=== PATIENT | female | born 1995 | race Caucasian/White ===

== ENCOUNTER 2022-11-24 12:12 | Emergency (ER) | payer OTHER ==
[2022-11-24] MEDS ORDERED: LIDOCAINE 2% W/EPI 1:200,000 MPF 20 ML VIAL IM ONE (12:59)
[2022-11-24] MEDS ORDERED: LIDOCAINE 1% MPF 5 ML VIAL ONE (12:59)
[2022-11-24 13:59] LABS: Specific Gravity 1.009 (1.005-1.030); Urine Bacteria None Seen /HPF (<20); Urine Bilirubin NEGATIVE (Negative); Urine Blood Negative (Negative); Urine Clarity Clear (Clear); Urine Color Light-Yellow (Yellow); Urine Glucose NEGATIVE (Negative); Urine Mucus Slight /HPF (None Seen); Urine Protein NEGATIVE (Negative); Urine RBC <5 /HPF (None Seen); Urine Urobilinogen Normal (Normal); Urine pH 6.5 (5.0-7.0)
--- NOTE | 2022-11-24 14:15 | RAD REPORT ---
EXAM DESCRIPTION: US - Pelvis Complete - 11/24/2022 1:26 pm CLINICAL HISTORY: vaginal bulge;Abd pain Pelvic pain. COMPARISON: No comparisons FINDINGS: Cystic structure is present in the labia at the area of interest measuring 2.3 x 2.2 cm. N o internal soft tissue component. No adnexal masses or pelvic free fluid. Single live intrauterine gestational with hardware 160 beats per minute noted. Further evaluation of the fetus was not requested. IMPRESSION: Nonspecific 2.3 cm labial cyst is noted.
--- NOTE | 2022-11-24 15:09 | EDPHYS ---
Physician Documentation [facility] Name: Denia Solares Age: 27 yrs Sex: Female : 1995 Arrival Date: 11/24/2022 Time: 12:12 Bed 8 Private MD: ED Physician Micah Grace HPI: 11/24 12:21 This 27 yrs old Female presents to ER via Unassigned with complaints of 15 wks sb4 , vaginal bulge. 17:46 Patient states that she has felt like there is something protruding out of her vagina sb4 that has worsened over the past couple of days. She is not sure what it is. She states her took a photo of it but deleted it. She has no other symptoms, no abdominal pain or vaginal bleeding. She is 15 weeks in which she has received adequate care. Historical: - Allergies: 12:21 No Known Allergies; ll1 - PMHx: 12:21 None; ll1 - PSHx: 12:21 section; ll1 - Immunization history:: Adult Immunizations up to date. - Social history:: Smoking status: Patient denies any tobacco usage or history of. ROS: 17:46 Constitutional: Negative for fever, chills, and weight loss, sb4 17:46 : Positive for Vaginal bulge, 17:46 All other systems are negative, Exam: 17:46 Constitutional: This is a well developed, well nourished patient who is awake, alert, sb4 and in no acute distress. Head/Face: Normocephalic, atraumatic. Eyes: Extra-ocular motions intact. Periorbital areas with no swelling, redness, or edema. ENT: Mucous membranes moist. Cardiovascular: Regular rate and rhythm with a normal S1 and S2. Respiratory: Lungs have equal breath sounds bilaterally, clear to auscultation and percussion. No rales, rhonchi or wheezes noted. No increased work of breathing, no retractions or nasal flaring. Abdomen/GI: Soft, non-tender, no distension. Skin: Warm, dry with normal turgor. Normal color with no rashes, no lesions, and no evidence of cellulitis. MS/ Extremity: Pulses equal, no cyanosis. Neurovascular intact. Full, normal range of motion. Neuro: Awake and alert, GCS 15, oriented to person, place, time, and situation. Motor strength 5/5 in all extremities. Sensory grossly intact. 17:46 : CVA tenderness, is absent, Pelvic Exam: External exam: 2.5 circumferential mass noted around the urethral meatus, painful to palpation, not fixed, Speculum exam: normal findings, no bleeding is noted, no cervicitis, the nurse was present for the exam, Bladder: is normal, Vital Signs: 12:22 BP 114 / 68; Pulse 77; Resp 16; Temp 98.3; Pulse Ox 100% ; Weight 103.87 kg; Height 5 ll1 ft. 5 in. ; Pain 1/10; 12:37 BP 101 / 59; Pulse 81; Resp 17; Pulse Ox 100% on R/A; Pain 0/10; tm6 15:10 BP 101 / 58; Pulse 72; Resp 18; Pulse Ox 100% on R/A; ld1 12:22 Body Mass Index 38.11 (103.87 kg, 165.1 cm) ll1 12:22 Pain Scale: Adult ll1 12:37 Pain Scale: Adult tm6 MDM: 12:15 Patient medically screened. sb4 17:46 Differential diagnosis: Uterine prolapse, bladder prolapse, urethral prolapse, sb4 threatened , UTI, Bartholin cyst, missed , and inevitable . Data reviewed: vital signs, nurses notes, radiologic studies, I have discussed the patient's presentation/case with the attending Emergency Department Physician; and as a result, I will discharge patient. Historians other than the Patient: Spouse/Significant Other: Spouse. Counseling: I had a detailed discussion with the patient and/or guardian regarding the historical points, exam findings, and any diagnostic results supporting the discharge/admit diagnosis, radiology results, the need for outpatient follow up, an OB/Gyne specialist, Patient is from [place] she is here just visiting. She made an appointment with her BICYCLE SERVICE TECHNICIAN for Tuesday to further evaluate the possible urethral prolapse. Disc with her ultrasound and report were given for her to take, to return to the emergency department if symptoms worsen or persist or if there are any questions or concerns that arise at home. 11/24 13:11 Order name: UAM; Complete Time: 14:00 sb4 11/24 13:24 Order name: Pelvis Complete; Complete Time: 14:23 EDMS 11/24 13:27 Order name: TRANSVAG OB CERVIX ASSESSMENT EDMS 11/24 12:41 Order name: Pelvic Exam Setup; Complete Time: 12:41 sb4 Administered Medications: 12:55 Not Given (Physician Discretion): lidocaine(1 %) 20 ml 20 ml Infiltration once; to ld1 bedside Disposition: 16:44 I was immediately available on-site in the Emergency Department for consultation in the ms3 care of the patient. Disposition Summary: 11/24/22 15:09 Discharge Ordered Notes: Location: Home sb4 Problem: new sb4 Symptoms: are unchanged sb4 Condition: Stable sb4 Diagnosis - Urethral Prolapse, suspected sb4 Followup: sb4 - With: Private Physician - When: 2 - 3 days - Reason: Recheck today's complaints, Re-evaluation by your physician Discharge Instructions: - Discharge Summary Sheet sb4 - How to Take a Sitz Bath sb4 Forms: - Medication Reconciliation Form sb4 - Thank You Letter sb4 - Antibiotic Education sb4 - Prescription Opioid Use sb4 - Patient Portal Instructions sb4 - Leadership Thank You Letter sb4 Signatures: Dispatcher [employer] EDMS Manish Elias, RN RN ll1 Micah Grace DO DO ms3 Indu Lanier PA-C PA-C sb4 Petra Grace RN ld1 Corrections: (The following items were deleted from the chart) 13:24 12:56 Transvaginal Ob+US.RAD.BRZ ordered. EDKS EDMS 13:27 12:21 This 27 yrs old Female presents to ER via Unassigned with complaints of 15 wks sb4 , Abdominal Cramping. sb4
--- NOTE | 2022-11-24 15:09 | ER ---
Nurse's Notes [facility] Name: Denia Solares Age: 27 yrs Sex: Female : 1995 Arrival Date: 11/24/2022 Time: 12:12 Bed 8 Private MD: Diagnosis: Urethral Prolapse, suspected Presentation: 11/24 12:22 Chief complaint: Patient states: Reports a bulge to vaginal area for 2 days that's been ll1 getting bigger. Denies pain. 15 weeks with slight abdominal cramping for 1 day. G5, P1. Coronavirus screen: Vaccine status: Patient reports receiving the 2nd dose of the covid vaccine. Client denies travel out of the [place] in the last 14 days. At this time, the client does not indicate any symptoms associated with coronavirus-19. Ebola Screen: Patient denies travel to an Ebola-affected area in the 21 days before illness onset. Initial Sepsis Screen: Does the patient meet any 2 criteria? No. Patient's initial sepsis screen is negative. Does the patient have a suspected source of infection? No. Patient's initial sepsis screen is negative. Risk Assessment: Do you want to hurt yourself or someone else? Patient reports no desire to harm self or others. Onset of symptoms was November 23, 2022. 12:22 Method Of Arrival: Ambulatory ll1 12:22 Acuity: TAYLOR 3 ll1 Historical: - Allergies: 12:21 No Known Allergies; ll1 - PMHx: 12:21 None; ll1 - PSHx: 12:21 section; ll1 - Immunization history:: Adult Immunizations up to date. - Social history:: Smoking status: Patient denies any tobacco usage or history of. Screenin:37 [facility] ED Fall Risk Assessment (Adult) History of falling in the last 3 months, tm6 including since admission No falls in past 3 months (0 pts). Abuse screen: Denies threats or abuse. Denies injuries from another. Nutritional screening: No deficits noted. Tuberculosis screening: No symptoms or risk factors identified. Assessment: 12:35 General: Appears in no apparent distress. comfortable, Behavior is calm, cooperative. tm6 Pain: Denies pain. Neuro: Level of Consciousness is awake, alert, obeys commands, Oriented to person, place, time, situation, Appropriate for age. Cardiovascular:. Respiratory: Airway is patent Respiratory effort is even, unlabored, Respiratory pattern is regular, symmetrical. GI: No signs and/or symptoms were reported involving the gastrointestinal system. Bowel sounds present X 4 quads. Abd is soft and non tender. : at vaginal opening Reports mass at vaginal opening. EENT: No signs and/or symptoms were reported regarding the EENT system. Derm: No signs and/or symptoms reported regarding the dermatologic system. Musculoskeletal: No signs and/or symptoms reported regarding the musculoskeletal system. 14:26 Reassessment: Patient appears in no apparent distress at this time. No changes from ld1 previously documented assessment. Patient and/or family updated on plan of care and expected duration. Pain level reassessed. Patient is alert, oriented x 3, equal unlabored respirations, skin warm/dry/pink. Vital Signs: 12:22 BP 114 / 68; Pulse 77; Resp 16; Temp 98.3; Pulse Ox 100% ; Weight 103.87 kg; Height 5 ll1 ft. 5 in. ; Pain 1/10; 12:37 BP 101 / 59; Pulse 81; Resp 17; Pulse Ox 100% on R/A; Pain 0/10; tm6 15:10 BP 101 / 58; Pulse 72; Resp 18; Pulse Ox 100% on R/A; ld1 12:22 Body Mass Index 38.11 (103.87 kg, 165.1 cm) ll1 12:22 Pain Scale: Adult ll1 12:37 Pain Scale: Adult tm6 ED Course: 12:14 Patient arrived in ED. mr 12:15 Indu Lanier PA-C is PHCP. sb4 12:15 Micah Grace DO is Attending Physician. sb4 12:17 Luiza Nieves, SADAF is Primary Nurse. me1 12:21 Arm band placed on Patient placed in an exam room, on a stretcher. ll1 12:24 Triage completed. ll1 12:37 Patient has correct armband on for positive identification. Placed in gown. Bed in low tm6 position. Call light in reach. Side rails up X2. Provided Education on: . 12:37 Assist provider with pelvic exam: Set up pelvic tray. Performed by Indu Lanier PA-C. tm6 13:27 TRANSVAG OB CERVIX ASSESSMENT In Process Unspecified. EDMS 13:28 Pelvis Complete In Process Unspecified. EDNH 14:26 Petra Grace, RN is Primary Nurse. ld1 15:22 Patient did not have IV access during this emergency room visit. ld1 Administered Medications: 12:55 Not Given (Physician Discretion): lidocaine(1 %) 20 ml 20 ml Infiltration once; to ld1 bedside Medication: 15:12 VIS not applicable for this client. ld1 Outcome: 15:09 Discharge ordered by . sb4 15:22 Discharged to home ambulatory, with family, ld1 15:22 Condition: stable 15:22 Discharge instructions given to patient, family, Instructed on discharge instructions, follow up and referral plans. Demonstrated understanding of instructions, follow-up care, 15:22 Patient left the ED. ld1 Signatures: Dispatcher [employer] EDNH KiranSavannah, Reg Reg mr CurtManish, RN RN ll1 Petra Grace, RN RN ld1 Indu Lanier, PA-C PA-C sb4 Luiza Nieves RN RN me1 Saturnino Webster RN RN tm6
[2022-11-24 16:01] VITALS: TEMP 98.3; O2SAT 100
[2022-11-24 16:04] VITALS: BP 101/58
--- NOTE | 2022-11-25 17:28 | RAD REPORT ---
EXAM DESCRIPTION: US - TRANSVAG OB CERVIX ASSESSMENT - 11/24/2022 1:26 pm CLINICAL HISTORY: Vaginal bulge;Abd pain Pelvic pain. COMPARISON: No comparisons FINDINGS: Cystic structure is present in the labia at the area of interest measuring 2.3 x 2.2 cm. N o internal soft tissue component. No adnexal masses or pelvic free fluid. Single live intrauterine gestational with hardware 160 beats per minute noted. Further evaluation of the fetus was not requested. IMPRESSION: Nonspecific 2.3 cm labial cyst is noted.
== END 2022-11-24 15:22 | disposition home or self-care (01) ==
LOC: ER 12:12
DX: O26.892 Other specified pregnancy related conditions, second trimester (principal); Z3A.15 15 weeks gestation of pregnancy
CPT/HCPCS: 76817; 76856; 81001; J2001